=== PATIENT | female | born 1965 | race Caucasian/White ===

== ENCOUNTER 2016-11-12 10:33 | Emergency (ER) | payer OTHER ==
[~2016-11-12] VITALS: Ht 152.4 cm; Wt 97.5 kg
--- NOTE | 2016-11-12 11:33 | ED MVC/FALL/TRAUMA COMPLAINT ---
History of Present Illness General Chief Complaint: Fall Stated Complaint: LEFT ARM AND KNEE PAIN S/P FALL AT WORK Source: patient Exam Limitations: no limitations Vital Signs & Intake/Output Vital Signs & Intake/Output Vital Signs Date Time Temp Pulse Resp B/P B/P Pulse O2 O2 Flow FiO2 Mean Ox Delivery Rate 11/12 1210 97.0 63 20 118/73 97 Room Air Room Air 11/12 1045 95.9 58 20 127/82 99 Room Air Room Air Allergies Coded Allergies: No Known Allergies (12/28/15) Triage Note: PT TO ED S/P "I WAS WALKING IN THE [place] AND I TRIPPED OVER SOMEONE, FELL FORWARD, HIT LIP,CHIN, LEFT ARM AND LEFT KNEE". -LOC, - BLOOD THINNERS. Triage Nurses Notes Reviewed? yes Onset: Abrupt Duration: hour(s):, constant, continues in ED Timing: recent history Severity: mild, moderate Injuries/Fall Location: upper extremity, lower extremity Method of Injury: fall Loss of Consciousness: no loss of consciousness No Modifying Factors: none HPI: 51-year-old female comes into emergency room for further evaluation of primarily left forearm pain and knee pain. Patient reports that she tripped over a colleague at work and fell and face planted. She has a swollen lip. She has pain primarily to her left forearm balsa has some mild left knee pain. She denies any loss of consciousness. Denies any headache. Denies any loose teeth. Denies any vomiting since the fall. Denies any anticoagulants. Denies any neck pain chest pain abdominal pain or hip pain. Patient comes in for further evaluation. Past History Travel History Traveled to [place] past 21 day No Medical History Any Pertinent Medical History? 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 No Review of Systems Review of Systems Constitutional: Reports: no symptoms. Eyes: Reports: no symptoms. Ears, Nose, Throat, Mouth: Reports: no symptoms. Respiratory: Reports: no symptoms. Cardiovascular: Reports: no symptoms. Gastrointestinal/Abdominal: Reports: no symptoms. Genitourinary: Reports: no symptoms. Musculoskeletal: Reports: see HPI. Skin: Reports: no symptoms. Neurological/Psychological: Reports: no symptoms. All Other Systems: Reviewed and Negative Physical Exam Physical Exam General Appearance: well developed/nourished, no apparent distress, alert Head: atraumatic, normal appearance Eyes: Bilateral: normal appearance, PERRL, EOMI. 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 Full range of motion of left shoulder Neurologic/Psych: no motor/sensory deficits, awake, alert, oriented x 3, normal gait Core Measures ACS in differential dx? No Severe Sepsis Present: No Septic Shock Present: No Progress Differential Diagnosis: abd injury, C/T/L spine injury, ext injury, ICH, pelvis injury, pnemothorax, spinal cord injury Plan of Care: Orders Procedure Date/time Status XRY-FOREARM, LEFT 11/12 1108 Active Diagnostic Imaging: Viewed by Me: Radiology Read. Discussed w/RAD: Radiology Read. Radiology Impression: SERVICE DATE: 11/12/16 EXAM TYPE: RAD - XRY-FOREARM , LEFT EXAMINATION: XR FOREARM, LEFT CLINICAL INFORMATION: Pain status post fall. COMPARISON: None TECHNIQUE: AP and lateral views of the left forearm were obtained. FINDINGS: Bone mineral density is maintained without evidence of fracture or dislocation. No focal osseous lesions are seen. Joint space is maintained without productive or erosive changes. There is minimal osseous spurring off the olecranon. There are indeterminate opacities overlying the dorsal arm ulnarly which may be related to arterial calcification, however foreign bodies either within or outside the patient are not excluded. IMPRESSION : No fracture or dislocation. Questionable foreign bodies. 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 Small possible foreign bodies. There is no abrasions of skin. There is no chance that this is related to today's visit. Return if any other concerns. Departure Departure Disposition: HOME OR SELF CARE Condition: Stable Clinical Impression Primary Impression: Contusion of left forearm Secondary Impressions: Soft tissues foreign body Referrals: DENA ANDERSON,PADMINI (PCP/Family) Additional Instructions: Ice. Rest. Motrin as needed. Follow-up with occupational medicine. Return if any other concerns. Go over x-ray results with your primary care doctor for possible soft tissue foreign bodies. Please go over all results of today's visit with your primary care doctor. Contact your primary care doctor to let them know you were here in the emergency room. There may be nonspecific findings which may not be related to your visit today here in the emergency room but may require further evaluation and chronic monitoring by your primary care doctor. If you had a laceration today the chance of foreign body always remains. You should follow-up with your primary care doctor for recheck in 3-5 days for a wound check. If you had an x-ray done there is a chance that a fracture could have been missed on initial read and you should follow-up with your primary care doctor for repeat x-rays if symptoms persist. If your blood pressure was elevated here in the emergency room please have rechecked by her primary care doctor within the next 48 hours by your primary care doctor. If you were prescribed a narcotic here in the emergency room or any type of controlled substances you're not allowed to drive while taking this medication or operate any type of heavy machinery. Narcotics can make you feel lightheaded dizziness nausea and can cause constipation. You may need to pickling drum operator a stool softener. Thank you for choosing [facility] emergency room. Please return to the emergency room immediately if you have any other concerns worsening of symptoms. Departure Forms: Customer Survey Employee Industrial Accident General Discharge Information
--- NOTE | 2016-11-12 11:43 | RADIOLOGY REPORT ---
EXAMINATION: XR FOREARM, LEFT CLINICAL INFORMATION: Pain status post fall. COMPARISON: None TECHNIQUE: AP and lateral views of the left forearm were obtained. FINDINGS: Bone mineral density is maintained without evidence of fracture or dislocation. No focal osseous lesions are seen. Joint space is maintained without productive or erosive changes. There is minimal osseous spurring off the olecranon. There are indeterminate opacities overlying the dorsal arm ulnarly which may be related to arterial calcification, however foreign bodies either within or outside the patient are not excluded. IMPRESSION: No fracture or dislocation. Questionable foreign bodies.
[2016-11-12 12:10] VITALS: BP 118/73
== END 2016-11-12 12:17 ==
LOC: ERH 10:33
DX: S50.12XA Contusion of left forearm, initial encounter (principal); W03.XXXA Other fall on same level due to collision with another person, initial encounter; Y92.9 Unspecified place or not applicable; Y93.9 Activity, unspecified
CPT/HCPCS: 73090-LT